=== PATIENT | female | born 1990 | race Caucasian/White ===

== ENCOUNTER 2016-09-14 01:32 | Inpatient (IN) ==
[2016-09-14] MEDS ORDERED: SODIUM CHLORIDE 1,000 ML IV STA (02:35)
[2016-09-14 02:47] LABS: ABG BASE EXCESS -4 (-2.0-2.0); ABG HCO3 21.3 (22.0-26.0); ABG PCO2 39.9 mmHg (35-45); ABG PH 7.336 (7.35-7.45); ABG TCO2 23 (22.0-28.0)
[2016-09-14 02:59] LABS: HEMATOCRIT 42.5 % (37.0-47.0); HEMOGLOBIN 14.6 g/dl (12.0-16.0); MEAN CORPUSCULAR HEMOGLOBIN 29.3 pg (27.0-31.0); MEAN CORPUSCULAR HGB CONC 34.4 (31.8-35.4); MEAN CORPUSCULAR VOLUME 85.2 fl (81.0-99.0); PLATELET COUNT 323 10^3/uL (140-440); RED BLOOD COUNT 4.99 10^6/ul (4.20-5.40)
[2016-09-14 03:07] LABS: BILIRUBIN,URINE Negative (NEGATIVE); KETONES,URINE Negative (NEGATIVE); LEUKOCYTE ESTERASE ,URINE Trace (NEGATIVE); NITRITE,URINE Positive (NEGATIVE); PH,URINE 5.5 (5-9); PROTEIN,URINE 1+ (NEGATIVE); URINE, BLOOD 2+ (NEGATIVE)
[2016-09-14 03:08] LABS: SERUM PREGNANCY INTERNAL QC INTERNAL QC VALID
[2016-09-14 03:11] LABS: ANISOCYTOSIS NOT PRESENT (NOT PRESENT); WHITE BLOOD COUNT 31.12 K/ul (4.6-10.2)
[2016-09-14 03:14] LABS: ADD URINE MICROSCOPIC YES
[2016-09-14 03:15] LABS: BACTERIA,URINE 4+ (NOT PRESENT)
[2016-09-14 03:18] LABS: ALANINE AMINOTRANSFERASE 23 U/L (12-78); ALBUMIN 4.3 g/dL (3.4-5.0); ALKALINE PHOSPHATASE 60 U/L (42-98); ANION GAP 15.5; ASPARTATE AMINO TRANSFERASE 68 U/L (15-37); BILIRUBIN,TOTAL 0.52 mg/dL (0.00-1.20); BLOOD UREA NITROGEN 19 mg/dL (7-18); BUN/CREATININE RATIO 20.87; CALCIUM 9.1 mg/dL (8.2-10.2); CARBON DIOXIDE 20 mmol/L (21-32); CHLORIDE 110 mmol/L (98-107); CREATININE 0.91 mg/dL (0.60-1.30); GLUCOSE 116 mg/dL (70-110); POTASSIUM 3.5 mmol/L (3.5-5.10); SODIUM 142 mmol/L (136-145); TOTAL PROTEIN 7.6 g/dL (6.4-8.2)
[2016-09-14] MEDS ORDERED: LEVAQUIN 500 MG in PREMIX 100 ML D5W 1 BAG IV STA (03:18)
[2016-09-14] MEDS ORDERED: LEVAQUIN 100 ML IV ONE (03:32)
[2016-09-14 03:33] LABS: COCAIN SCREEN,URINE NEGATIVE (NEGATIVE)
[2016-09-14 03:40] LABS: FLU INTERNAL QC INTERNAL QC VALID; RAPID FLU A NEGATIVE (NEGATIVE); RAPID FLU B NEGATIVE (NEGATIVE)
--- NOTE | 2016-09-14 03:42 | CT ---
EXAM: CT brain without contrast HISTORY: Mental status change TECHNIQUE: CT of the brain without intravenous contrast FINDINGS: There is no acute hemorrhage midline shift or mass effect. No hydrocephalus or abnormal extra-axial fluid collection. No significant parenchymal attenuation abnormality. The bony cranium appears normal. The visualized paranasal sinuses are clear. Soft tissues without significant abnorm ality. IMPRESSION: 1. CT of the brain within normal limits.
--- NOTE | 2016-09-14 03:44 | CT ---
Exam: CT of the chest without contrast History: Cough and fever Technique: [address] of the chest without contrast FINDINGS: The lung windows show no infiltrative opacities. No suspicious nodules or masses. Heart , great vessels and pericardium appear normal by noncontrast CT. Bilateral breast prosthesis. No a cute findings of the chest wall soft tissues or bony thorax. Impression: 1. No abnormalities of the chest
--- NOTE | 2016-09-14 03:48 | CT ---
Exam: CT of the abdomen and pelvis without contrast History: Abdominal pain and fever Technique: [address] of the abdomen and pelvis without intravascular contrast FINDINGS: No significant liver abnormality. The adrenals, pancreas and spleen are unremarkable. The stomach and hiatus are unremarkable.The gallbladder appears normal. Kidneys and proximal collecting system are unremarkable. The appendix is normal. Orthopedic hardware in the pelvis is technically i nhibiting at the level of the cecum. Bowel loops demonstrate normal caliber. No inflamatory change s een in the mesentery or retroperitoneum. Pelvic genitourinary structures appear normal. Pelvic bowel loops are unremarkable. No inflammatory change in the pelvic fat. No acute abnormality of the abdominal or pelvic skeleton. Extensive orthop edic hardware of the lumbosacral spine. Prior screw fixation of the sacroiliac joints. Impression: 1. No inflammatory process, bowel or urinary obstruction is seen. No acute findings of the abdomen or pelvis.
--- NOTE | 2016-09-14 05:27 | ED.PDOC ---
General ED Provider: Dr. DALI CHAN-ER Chief Complaint: Altered Mental Status Stated Complaint: she is running a fever Time Seen by Physician: 01:40 Mode of Arrival: Wheelchair Information Source: Family Exam Limitations: No limitations Primary Care Provider: KAREN COCHRAN Nursing and Triage Documentation Reviewed and Agree: Yes Neurological Complaint Exam - Altered Mental Status Complaint/Exam Current Mental Status: Unresponsiveness, Confusion Onset: Sudden Symptoms Are: Still present Timing: Constant Initial Severity: Mild Current Severity: Mild Eye Deviation Present: No Character: Reports: Confusion, Responsiveness, Lethargy Aggravating: Reports: Ingestion Alleviating: Reports: Spontaneous resolution Associated Signs and Symptoms: Reports: Fever Cardiac Risk Factors: Reports: None CVA Risk Factors: Reports: None Related Surgical History: Reports: None Carotid Bruit Present: No Nystagmus Present: No Gag Reflex Present: Yes Meningeal Signs Positive: No Focal Weakness: Present: None Focal Sensory Loss: Present: None Gait: Normal [id number]: Normal Findings Romberg Test Positive: No Babinski Sign: Negative Right, Negative Left Heel to Toe Normal: Yes Signs of Injury: Present: Normal findings Thrombolytics Considered: No Differential Diagnoses: Intoxication, Sepsis Review of Systems - Review Of Systems Constitutional: Reports: Chills, Fever Eyes: Reports: No symptoms Ears, Nose, Mouth, Throat: Reports: No symptoms Respiratory: Reports: No symptoms Cardiac: Reports: No symptoms GI: Reports: No symptoms : Reports: No symptoms Musculoskeletal: Reports: No symptoms Skin: Reports: No symptoms Neurological: Reports: No symptoms Endocrine: Reports: No symptoms Hematologic/Lymphatic: Reports: No symptoms All Other Systems: Reviewed and Negative Past Medical History - Past Medical History Endocrine: Reports: None Cardiovascular: Reports: None Respiratory: Reports: None Hematological: Reports: None Gastrointestinal: Reports: Other Genitourinary: Reports: UTI, Other (left pyelo) Neuro/Psych: Reports: Migraine Musculoskeletal: Reports: Back Pain Cancer: Reports: None Last Menstrual Period: UNKNOWN Other Pertinent Past Medical History: BACK SURGERY, PELVIS SURGERY - Surgical History General Surgical History: Reports: Orthopedic (BACK SURGERY, PELVIS SURGERY ) - Family History Family History: Reports: Unknown - Social History Smoking Status: Current every day smoker, Heavy tobacco smoker Hx Substance Use: Yes Alcohol Screening: Occasionally Lives: With family - Immunizations Tetanus Shot up to Date: (UNKNOWN) Physical Exam - Physical Exam Appearance: Well-appearing, No pain distress, Well-nourished Ill-appearing: Mild Eyes: DENISE, EOMI, Conjunctiva clear ENT: Ears normal, Nose normal, Oropharynx normal Neck: Supple Respiratory: Airway patent, Breath sounds clear, Breath sounds equal, Respirations nonlabored Cardiovascular: RRR GI/: Soft Musculoskeletal: Normal strength, ROM intact, No edema, No calf tenderness Skin: Warm, Dry, Normal color Neurological: Sensation intact, Alert, Disoriented Psychiatric: Affect appropriate Interpretation - Radiology Interpretation Radiology Interpretation By: Radiologist Radiology Results: Negative Exam Interpreted: CT Scan Re-Evaluation - Re-Evaluation Time of Re-Evaluation: 05:26 Status: Improved (no awake and oriented) Vital Signs Stable: Yes Pain Level: o Appearance: NAD Lungs: Clear Skin: Warm and Dry Neuro: Alert and Oriented X3 CV: RRR Physician Notification - Case Discussed Physician Notified: dr cochran Time of Notification: 05:27 Critical Care Note - Critical Care Note Total Time (mins): 0 Course - Course Hematology/Chemistry: 09/14/16 02:50 09/14/16 02:50 Orders, Labs, Meds: Lab Review 09/14/16 09/14/16 09/14/16 02:00 02:33 02:50 WBC 31.12 H RBC 4.99 Hgb 14.6 Hct 42.5 MCV 85.2 MCH 29.3 MCHC 34.4 RDW Coeff of Yash 13.1 Plt Count 323 Neutrophils % (Manual) 88.0 H Lymphocytes % (Manual) 11.0 Monocytes % (Manual) 1.0 Puncture Site Lb O2 Saturation 96.0 ABG pH 7.336 L ABG pCO2 39.9 ABG pO2 85.0 ABG HCO3 21.3 L ABG Total CO2 23 ABG Base Excess -4 L Kieran Test + FiO2 % 21.0 Sodium 142 Potassium 3.5 Chloride 110 H Carbon Dioxide 20 L Anion Gap 15.5 BUN 19 H Creatinine 0.91 Estimated GFR (MDRD) 74.00 BUN/Creatinine Ratio 20.87 Glucose 116 H Lactic Acid 6.4 Calcium 9.1 Total Bilirubin 0.52 AST 68 H ALT 23 Alkaline Phosphatase 60 Total Protein 7.6 Albumin 4.3 Globulin 3.3 Albumin/Globulin Ratio 1.30 Procalcitonin 0.82 Serum , Qual Negative Urine Color Yellow Urine Clarity Slightly Urine pH 5.5 Ur Specific [place] >=1.030 Urine Protein 1+ Urine Glucose (UA) Negative Urine Ketones Negative Urine Blood 2+ Urine Nitrite Positive Urine Bilirubin Negative Urine Urobilinogen 0.2 Ur Leukocyte Esterase Trace Urine Microscopic WBC 2-5 Ur Squamous Epith Cells 2-5 Urine Bacteria 4+ Urine Opiates Screen Negative Ur Oxycodone Screen Negative Urine Methadone Screen Negative Ur Propoxyphene Screen Negative Ur Barbiturates Screen Negative U Tricyclic Antidepress Negative Ur Phencyclidine Scrn Negative Ur Amphetamine Screen Positive U Methamphetamines Scrn Negative U Benzodiazepines Scrn Negative Urine Cocaine Screen Negative U Cannabinoids Screen Negative Plasma/Serum Alcohol < 10.0 Influenza A (Rapid) Influenza B (Rapid) 09/14/16 03:15 WBC RBC Hgb Hct MCV MCH MCHC RDW Coeff of Yash Plt Count Neutrophils % (Manual) Lymphocytes % (Manual) Monocytes % (Manual) Puncture Site O2 Saturation ABG pH ABG pCO2 ABG pO2 ABG HCO3 ABG Total CO2 ABG Base Excess Kieran Test FiO2 % Sodium Potassium Chloride Carbon Dioxide Anion Gap BUN Creatinine Estimated GFR (MDRD) BUN/Creatinine Ratio Glucose Lactic Acid Calcium Total Bilirubin AST ALT Alkaline Phosphatase Total Protein Albumin Globulin Albumin/Globulin Ratio Procalcitonin Serum , Qual Urine Color Urine Clarity Urine pH Ur Specific [place] Urine Protein Urine Glucose (UA) Urine Ketones Urine Blood Urine Nitrite Urine Bilirubin Urine Urobilinogen Ur Leukocyte Esterase Urine Microscopic WBC Ur Squamous Epith Cells Urine Bacteria Urine Opiates Screen Ur Oxycodone Screen Urine Methadone Screen Ur Propoxyphene Screen Ur Barbiturates Screen U Tricyclic Antidepress Ur Phencyclidine Scrn Ur Amphetamine Screen U Methamphetamines Scrn U Benzodiazepines Scrn Urine Cocaine Screen U Cannabinoids Screen Plasma/Serum Alcohol Influenza A (Rapid) Negative Influenza B (Rapid) Negative Orders Category Date Time Status ADMIT PATIENT INPATIENT .TO MEDSURG (MONITORED BED) ADMISSION 09/14/16 05: 28 Active ABG DRAW REQUEST Stat CARDIO 09/14/16 02:34 Completed EKG-(ED ONLY) Stat CARDIO 09/14/16 02:34 Completed ACTIVITY .BR with BRP CARE 09/14/16 05:28 Active INTAKE & OUTPUT Q8HR CARE 09/14/16 05:28 Active TELEMETRY MONITORING TELE CARE 09/14/16 05:29 Active VITAL SIGNS Q4HR CARE 09/14/16 05:28 Active REGULAR DIET DIETARY 09/14/16 Breakfast Ordered IV [ED IV/MEDIPORT/POWERPORT] .ONCE EMERGENCY 09/14/16 02:35 Active ABG Stat LAB 09/14/16 02:33 Completed BLOOD ALCOHOL Stat LAB 09/14/16 02:50 Completed BLOOD CULTURE Stat LAB 09/14/16 02:50 Received CBC W/ AUTO DIFF DAILY@0600 LAB 09/15/16 06:00 Ordered CBC W/ AUTO DIFF DAILY@0600 LAB 09/16/16 06:00 Ordered CBC W/ AUTO DIFF DAILY@0600 LAB 09/17/16 06:00 Ordered CBC W/ AUTO DIFF DAILY@0600 LAB 09/18/16 06:00 Ordered CBC W/ AUTO DIFF DAILY@0600 LAB 09/19/16 06:00 Ordered CBC W/ AUTO DIFF DAILY@0600 LAB 09/20/16 06:00 Ordered CBC W/ AUTO DIFF DAILY@0600 LAB 09/21/16 06:00 Ordered CBC W/ AUTO DIFF DAILY@0600 LAB 09/22/16 06:00 Ordered CBC W/ AUTO DIFF DAILY@0600 LAB 09/23/16 06:00 Ordered CBC W/ AUTO DIFF DAILY@0600 LAB 09/24/16 06:00 Ordered CBC W/ AUTO DIFF DAILY@0600 LAB 09/25/16 06:00 Ordered CBC W/ AUTO DIFF DAILY@0600 LAB 09/26/16 06:00 Ordered CBC W/ AUTO DIFF DAILY@0600 LAB 09/27/16 06:00 Ordered CBC W/ AUTO DIFF DAILY@0600 LAB 09/28/16 06:00 Ordered CBC W/ AUTO DIFF DAILY@0600 LAB 09/29/16 06:00 Ordered CBC W/ AUTO DIFF DAILY@0600 LAB 09/30/16 06:00 Ordered CBC W/ AUTO DIFF DAILY@0600 LAB 10/01/16 06:00 Ordered CBC W/ AUTO DIFF DAILY@0600 LAB 10/02/16 06:00 Ordered CBC W/ AUTO DIFF DAILY@0600 LAB 10/03/16 06:00 Ordered CBC W/ AUTO DIFF Stat LAB 09/14/16 02:50 Completed COMPREHENSIVE METABOLIC PANEL DAILY@0600 LAB 09/15/16 06:00 Ordered COMPREHENSIVE METABOLIC PANEL DAILY@0600 LAB 09/16/16 06:00 Ordered COMPREHENSIVE METABOLIC PANEL DAILY@0600 LAB 09/17/16 06:00 Ordered COMPREHENSIVE METABOLIC PANEL DAILY@0600 LAB 09/18/16 06:00 Ordered COMPREHENSIVE METABOLIC PANEL DAILY@0600 LAB 09/19/16 06:00 Ordered COMPREHENSIVE METABOLIC PANEL DAILY@0600 LAB 09/20/16 06:00 Ordered COMPREHENSIVE METABOLIC PANEL DAILY@0600 LAB 09/21/16 06:00 Ordered COMPREHENSIVE METABOLIC PANEL DAILY@0600 LAB 09/22/16 06:00 Ordered COMPREHENSIVE METABOLIC PANEL DAILY@0600 LAB 09/23/16 06:00 Ordered COMPREHENSIVE METABOLIC PANEL DAILY@0600 LAB 09/24/16 06:00 Ordered COMPREHENSIVE METABOLIC PANEL DAILY@0600 LAB 09/25/16 06:00 Ordered COMPREHENSIVE METABOLIC PANEL DAILY@0600 LAB 09/26/16 06:00 Ordered COMPREHENSIVE METABOLIC PANEL DAILY@0600 LAB 09/27/16 06:00 Ordered COMPREHENSIVE METABOLIC PANEL DAILY@0600 LAB 09/28/16 06:00 Ordered COMPREHENSIVE METABOLIC PANEL DAILY@0600 LAB 09/29/16 06:00 Ordered COMPREHENSIVE METABOLIC PANEL DAILY@0600 LAB 09/30/16 06:00 Ordered COMPREHENSIVE METABOLIC PANEL DAILY@0600 LAB 10/01/16 06:00 Ordered COMPREHENSIVE METABOLIC PANEL DAILY@0600 LAB 10/02/16 06:00 Ordered COMPREHENSIVE METABOLIC PANEL DAILY@0600 LAB 10/03/16 06:00 Ordered COMPREHENSIVE METABOLIC PANEL Stat LAB 09/14/16 02:50 Completed LACTIC ACID Stat LAB 09/14/16 02:50 Completed MANUAL DIFFERENTIAL Stat LAB 09/14/16 02:50 Completed MOLECULAR GROUP A STREP Stat LAB 09/14/16 03:15 Results PROCALCITONIN Stat LAB 09/14/16 02:50 Completed RAPID FLU A/B Stat LAB 09/14/16 03:15 Completed SERUM Stat LAB 09/14/16 02:50 Completed STREP SCREEN Stat LAB 09/14/16 03:15 Results URINALYSIS C & S IF INDICATED Stat LAB 09/14/16 02:00 Completed URINE CULTURE Stat LAB 09/14/16 03:15 Received URINE DRUG SCREEN (RAPID FOR ED) [DRUG SCREEN, URINE, LAB 09/14/16 02:00 Completed RAPID] Stat 0.9 % Sodium Chloride [Saline Flush] MEDS 09/14/16 02:35 Ordered 1 syr IVF PRN PRN Enoxaparin Sodium [Lovenox] MEDS 09/14/16 09:00 Ordered 40 mg SUBCUT DAILY Levofloxacin/D5w [Levaquin] 100 ml MEDS 09/14/16 03:32 Discontinued IV .STK-MED Levofloxacin/D5w [Levaquin] 500 mg MEDS 09/14/16 09:00 Ordered Premix 100 ml D5w 1 bag IV DAILY Levofloxacin/D5w [Levaquin] 500 mg MEDS 09/14/16 03:18 Discontinued Premix 100 ml D5w 1 bag IV ONCE Potassium Chloride in 0.9%NaCl [Sodium Chloride 0.9%- MEDS 09/14/16 05:30 Ordered KCl 20 Meq] 1,000 ml IV 75 mls/hr Sodium Chloride 0.9% [Sodium Chloride] 1,000 ml MEDS 09/14/16 02:35 Active IV 100 mls/hr RESUSCITATION STATUS Routine OTHERS 09/14/16 05:[address] ABDOMEN/PELVIS WO CONTRAST Stat RADS 09/14/16 02:[address] CHEST W/O CONTRAST Stat RADS 09/14/16 02:[address] HEAD W/O CONTRAST Stat RADS 09/14/16 02:36 Completed Medications Generic Name Dose Route Start Last Admin Trade Name Freq PRN Reason Stop Dose Admin Enoxaparin Sodium 40 mg 09/14/16 09:00 Lovenox SUBCUT DAILY LAYA Sodium Chloride 1,000 mls @ 100 mls/hr 09/14/16 02:35 09/14/16 03:04 Sodium Chloride IV 09/14/16 12:34 100 mls/hr .Q10H STA Administration Levofloxacin/Dextrose 500 mg/ 100 mls @ 100 mls/hr 09/14/16 09:00 Dextrose IV DAILY LAYA Potassium Chloride/Sodium Chloride 1,000 mls @ 75 mls/hr 09/14/16 05:30 Sodium Chloride 0.9%-Kcl 20 Meq IV .[id number] LAYA Sodium Chloride 1 syr 09/14/16 02:35 09/14/16 03:04 Saline Flush IVF 1 syr PRN PRN Administration To flush IV Discontinued Medications Generic Name Dose Route Start Last Admin Trade Name Freq PRN Reason Stop Dose Admin Levofloxacin/Dextrose 500 mg/ 100 mls @ 100 mls/hr 09/14/16 03:18 09/14/16 03 :38 Dextrose IV 09/14/16 04:17 100 mls/hr ONCE STA Administration Vital Signs: Temp Pulse Resp BP Pulse Ox 09/14/16 03:39 97.5 F L 98 H 20 121/75 98 09/14/16 01:34 101.2 F H 136 H 28 H 114/70 96 Departure - Departure Time of Disposition: : Disposition: ADMITTED INPATIENT Discharge Problem: UTI (lower urinary tract infection) Condition: Fair Pt referred to PMD for follow-up: Yes Allergies/Adverse Reactions: Allergies amoxicillin [Amoxicillin] Adverse Reaction (Intermediate, Verified 03/24/16 14: 18) Rash latex Adverse Reaction (Mild, Verified 03/24/16 14:18) Rash on skin if contact with skin for more than 30minutes. Home Medications: Ambulatory Orders 1 [Unobtainable] 09/14/16 Disposition Discussed With: Patient
[2016-09-14 06:38] VITALS: BMI 19.6
[2016-09-14] MEDS: LOVENOX SUBCUT SCH (09:17)
[2016-09-14] MEDS: SODIUM CHLORIDE 0.9%-KCL 20 MEQ 1,000 ML IV SCH (10:37)
[2016-09-14] MEDS: NORCO 5-325 PO PRN (17:49)
[2016-09-14] MEDS: LEVAQUIN 500 MG in PREMIX 100 ML D5W 1 BAG IV SCH (20:43)
[2016-09-15 04:48] LABS: BASOPHILS % (AUTO) 0.4 % (0.0-3.0); EOSINOPHILS # (AUTO) 0.2 K/ul (0.0-0.7); EOSINOPHILS % (AUTO) 1.9 % (0.0-7.0); HEMATOCRIT 36.3 % (37.0-47.0); HEMOGLOBIN 12.4 g/dl (12.0-16.0); IMMATURE GRANULOCYTE % (AUTO) 0.2 % (0.0-5.0); LYMPHOCYTES # (AUTO) 3.7 K/uL (0.60-3.4); LYMPHOCYTES % (AUTO) 39.4 (10.0-50.0); MEAN CORPUSCULAR HEMOGLOBIN 29.3 pg (27.0-31.0); MEAN CORPUSCULAR HGB CONC 34.2 (31.8-35.4); MEAN CORPUSCULAR VOLUME 85.8 fl (81.0-99.0); MONOCYTES # (AUTO) 0.5 K/uL (0.4-2.0); MONOCYTES % (AUTO) 5.6 (0-10); NEUTROPHILS # (AUTO) 4.9 K/ul (2.0-6.9); NEUTROPHILS % (AUTO) 52.5; PLATELET COUNT 255 10^3/uL (140-440); RED BLOOD COUNT 4.23 10^6/ul (4.20-5.40); WHITE BLOOD COUNT 9.26 K/ul (4.6-10.2)
[2016-09-15 05:08] LABS: ALBUMIN 3.2 g/dL (3.4-5.0); ALBUMIN/GLOBULIN RATIO 1.33; ANION GAP 11.6; BILIRUBIN,TOTAL 0.54 mg/dL (0.00-1.20); BUN/CREATININE RATIO 24.13; CALCIUM 8.8 mg/dL (8.2-10.2); CREATININE 0.58 mg/dL (0.60-1.30); POTASSIUM 3.6 mmol/L (3.5-5.10); TOTAL PROTEIN 5.6 g/dL (6.4-8.2)
[2016-09-15] MEDS: SODIUM CHLORIDE 0.9%-KCL 20 MEQ 1,000 ML IV SCH ×3 (06:06→19:48)
[2016-09-15] MEDS: LOVENOX SUBCUT SCH (08:32)
[2016-09-15] MEDS: NORCO 5-325 PO PRN (17:29)
[2016-09-15] MEDS: LEVAQUIN 500 MG in PREMIX 100 ML D5W 1 BAG IV SCH (20:07)
[2016-09-16 05:20] LABS: BASOPHILS % (AUTO) 0.3 % (0.0-3.0); EOSINOPHILS # (AUTO) 0.3 K/ul (0.0-0.7); EOSINOPHILS % (AUTO) 3.9 % (0.0-7.0); HEMATOCRIT 37.4 % (37.0-47.0); HEMOGLOBIN 12.6 g/dl (12.0-16.0); IMMATURE GRANULOCYTE % (AUTO) 0.2 % (0.0-5.0); LYMPHOCYTES # (AUTO) 4.1 K/uL (0.60-3.4); LYMPHOCYTES % (AUTO) 47.6 (10.0-50.0); MEAN CORPUSCULAR HEMOGLOBIN 29.3 pg (27.0-31.0); MEAN CORPUSCULAR HGB CONC 33.7 (31.8-35.4); MONOCYTES # (AUTO) 0.5 K/uL (0.4-2.0); MONOCYTES % (AUTO) 5.5 (0-10); NEUTROPHILS # (AUTO) 3.7 K/ul (2.0-6.9); NEUTROPHILS % (AUTO) 42.5; PLATELET COUNT 245 10^3/uL (140-440); WHITE BLOOD COUNT 8.66 K/ul (4.6-10.2)
[2016-09-16 05:45] LABS: ALBUMIN 2.9 g/dL (3.4-5.0); ALBUMIN/GLOBULIN RATIO 1.16; BILIRUBIN,DIRECT 0.25 mg/dL (0.00-0.30); BILIRUBIN,TOTAL 0.52 mg/dL (0.00-1.20); BUN/CREATININE RATIO 14.03; CALCIUM 8.4 mg/dL (8.2-10.2); CREATININE 0.57 mg/dL (0.60-1.30); TOTAL PROTEIN 5.4 g/dL (6.4-8.2)
[2016-09-16] MEDS: LOVENOX SUBCUT SCH (08:06)
--- NOTE | 2016-09-16 08:49 | US ---
EXAM: ULTRASOUND ABDOMEN LIMITED HISTORY: Elevated liver enzymes FINDINGS: Ultrasound abdomen, limited. Liver size was measured at about 9 cm, within normal limits . The liver parenchyma demonstrated normal sonographic appearance without evidence of intrahepatic b iliary dilatation or focal lesion. Patent and hepatopedal portal vein. The gallbladder is decompressed and the wall appears thickened although measures grossly within norm al limits at about 0.23-0.33 cm. There is no pericholecystic ascites or gallstones. No gallbladder sludge. Common bile duct diameter normal 0.21 cm. Visualized pancreas within normal limits. IMPRESSION: 1. Liver appears grossly unremarkable sonographically. No focal hepatic lesion or intrahepatic lauren iary dilatation. 2. Contracted gallbladder with no stones or sludge identified. Common bile duct diameter within no rmal limits. 3. No ascites.
[2016-09-16] MEDS: SODIUM CHLORIDE 0.9%-KCL 20 MEQ 1,000 ML IV SCH (15:17)
[2016-09-16 15:23] VITALS: BP 111/74; TEMP 97.7
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
== END 2016-09-16 16:56 | disposition home or self-care (01) | DRG 690 ==
LOC: ED 01:32 → MEDSURG B 05:36
PROVIDERS: ADMIT Family Medicine; ATTEND Family Medicine
DX: N39.0 Urinary tract infection, site not specified (principal); R41.82 Altered mental status, unspecified; R50.9 Fever, unspecified; F15.99 Other stimulant use, unspecified with unspecified stimulant-induced disorder; N31.9 Neuromuscular dysfunction of bladder, unspecified; R53.83 Other fatigue; R74.8 Abnormal levels of other serum enzymes; R45.1 Restlessness and agitation; B96.20 Unspecified Escherichia coli [E. coli] as the cause of diseases classified elsewhere; G89.29 Other chronic pain; R10.2 Pelvic and perineal pain; F17.200 Nicotine dependence, unspecified, uncomplicated; Z96.0 Presence of urogenital implants; Z91.19 Patient's noncompliance with other medical treatment and regimen; V89.2XXS Person injured in unspecified motor-vehicle accident, traffic, sequela
CPT/HCPCS: 36415; 80053; 80306; 80307; 81001; 82248; 82803; 83605; 84145; 84703; 85007; 85025; 86706; 86803; 87040; 87086; 87186; 87651; 87804; 87880; 93005; 93010; 96361; 96365; 99284

== ENCOUNTER 2017-10-19 21:51 | Outpatient (CLI) | END 2017-10-19 22:07 | disposition short-term general hospital (02) | LOC: AMBL 21:51 | PROVIDERS: ATTEND Family Medicine | DX: R41.82 Altered mental status, unspecified (principal); F15.10 Other stimulant abuse, uncomplicated; R44.3 Hallucinations, unspecified ==

== ENCOUNTER 2024-05-06 16:30 | Inpatient (IN) ==
[2024-05-06] MEDS ORDERED: BENADRYL 25 MG in SODIUM CHLORIDE 100ML 100 ML IV STA (17:32)
[2024-05-06] MEDS ORDERED: COMPAZINE 10 MG in SODIUM CHLORIDE 50 ML IV STA (17:32)
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
[2024-05-06 18:10] LABS: BASOPHILS % (AUTO) 0.2 % (0.0-3.0); EOSINOPHILS # (AUTO) 0.1 K/ul (0.0-0.7); EOSINOPHILS % (AUTO) 0.6 % (0.0-7.0); HEMATOCRIT 39.4 % (37.0-47.0); HEMOGLOBIN 12.7 g/dl (12.0-16.0); IMMATURE GRANULOCYTE # (AUTO) 0.1 (0.0-1.0); IMMATURE GRANULOCYTE % (AUTO) 0.4 % (0.0-5.0); LYMPHOCYTES # (AUTO) 1.3 K/uL (0.60-3.4); LYMPHOCYTES % (AUTO) 6.8 (10.0-50.0); MEAN CORPUSCULAR HEMOGLOBIN 28.8 pg (27.0-31.0); MEAN CORPUSCULAR HGB CONC 32.2 (31.8-35.4); MEAN CORPUSCULAR VOLUME 89.3 fl (81.0-99.0); MONOCYTES # (AUTO) 0.6 K/uL (0.4-2.0); MONOCYTES % (AUTO) 3.1 (0-10); NEUTROPHILS # (AUTO) 16.2 K/ul (2.0-6.9); NEUTROPHILS % (AUTO) 88.9 % (42.2-75.2); PLATELET COUNT 274 10^3/uL (140-440); RDW COEFFICIENT OF VARIATION 13.7 % (11.6-14.8); RED BLOOD COUNT 4.41 10^6/ul (4.20-5.40); WHITE BLOOD COUNT 18.27 K/ul (4.6-10.2)
[2024-05-06 18:23] LABS: ALANINE AMINOTRANSFERASE 22.5 U/L (0-35); ALBUMIN 3.92 g/dL (3.5-5.0); ALKALINE PHOSPHATASE 77.1 U/L (38-126); ASPARTATE AMINO TRANSFERASE 52.6 U/L (14-36); BILIRUBIN,TOTAL 0.39 mg/dL (0.2-1.3); BLOOD UREA NITROGEN 8.4 mg/dL (7-17); CALCIUM 8.9 mg/dL (8.4-10.2); CARBON DIOXIDE 24.8 mmol/L (22-30.0); CHLORIDE 105.4 mmol/L (98-107); CREATININE 0.47 mg/dL (0.60-1.30); GLUCOSE 108.3 mg/dL (74-106); POTASSIUM 4.05 mmol/L (3.5-5.1); SODIUM 135.9 mmol/L (134.5-145); TOTAL PROTEIN 7.28 g/dL (6.3-8.2)
[2024-05-06 18:26] LABS: SERUM PREGNANCY NEGATIVE (NEGATIVE)
[2024-05-06 18:40] LABS: SARS COV-2 RNA RAPID NAAT NEGATIVE (NEGATIVE)
[2024-05-06] MEDS: SODIUM CHLORIDE 1,000 ML IV ONE (19:13)
[2024-05-06] MEDS: TORADOL IVP STA (19:13)
[2024-05-06] MEDS: BENADRYL IVP STA (19:14)
[2024-05-06] MEDS: COMPAZINE IVP STA (19:17)
--- NOTE | 2024-05-06 19:38 | CT ---
EXAM: CT HEAD WITHOUT CONTRAST TECHNIQUE: Noncontrast CT of the head with multiple reformats. HISTORY: Headache. Vomiting. Trauma. COMPARISON: 09/14/2016 FINDINGS: Ventricular size is normal. Bansal-white matter interfaces are preserved with no evidence of acute inf arct. No evidence of intracranial hemorrhage. No midline shift or mass effect. No ectopia. Parana james sinuses and mastoid air cells are clear. Orbital contents are normal. The calvarium is intact. IMPRESSION: 1. No acute findings. MRI may be of benefit if concern for concussion. All CT scans are performed using dose optimization techniques as appropriate to the performed exam an d includes at least one of the following: Automated exposure control, adjustment of the mA and/or kV according to size, and the use of iterative reconstruction technique. All CT scans are performed using dose optimization techniques as appropriate to the performed exam an d include at least one of the following: Automated exposure control, adjustment of the mA and/or kV according t o size, and the use of iterative reconstruction technique.
--- NOTE | 2024-05-06 19:39 | DI ---
EXAM: RIBS RIGHT SIDE WITH PA CHEST. THREE VIEWS TOTAL HISTORY: Injury with rib pain. COMPARISON: None. FINDINGS/IMPRESSION: Diffuse infiltrates bilaterally more pronounced in the lower lobes. May reflect pulmonary edema or p neumonia.
[2024-05-06 20:10] LABS: MOLECULAR FLU A NEGATIVE BY NAAT (NEGATIVE); MOLECULAR FLU B NEGATIVE BY NAAT (NEGATIVE); RSV MOLECULAR NEGATIVE BY NAAT (NEGATIVE)
[2024-05-06] MEDS: ROCEPHIN 1 GM VIAL IVP ONE (20:40)
[2024-05-06] MEDS: ZITHROMAX 500 MG in SODIUM CHLORIDE 250 ML IV ONE (20:45)
[2024-05-06] MEDS ORDERED: ZOFRAN SDV IVP PRN (21:02)
[2024-05-06] MEDS ORDERED: TYLENOL PO PRN (21:02)
[2024-05-06 21:04] LABS: ABG O2 HGB 88.8 % (95-100); ABG PH 7.43 (7.35-7.45); BEecf -0.4 (-2.0-3.0); COHb 5.9 (0.5-1.5); HCO3 23.9 (21-28); MetHb 0.9 (0-1.5); sO2 93.3 % (94-98); tHb 12.4 g/dl (11.7-17.4)
[2024-05-06 22:06] VITALS: BMI 31.8
[2024-05-06] MEDS: LASIX IVP ONE (22:25)
[2024-05-06] MEDS: SOLU-MEDROL 40 MG IVP SCH (22:25)
[2024-05-06] MEDS: DUONEB NEB SCH (22:29)
[2024-05-06] MEDS ORDERED: BUSPAR PO PRN (23:31)
[2024-05-07 01:06] LABS: BILIRUBIN,URINE Negative (NEGATIVE); CLARITY,URINE Clear (CLEAR); COLOR,URINE Yellow (YELLOW); GLUCOSE, URINE (UA) Negative (NEGATIVE); KETONES,URINE Negative (NEGATIVE); LEUKOCYTE ESTERASE ,URINE Negative (NEGATIVE); NITRITE,URINE Negative (NEGATIVE); PH,URINE 5.5 (5-9); PROTEIN,URINE Negative (NEGATIVE); URINE, BLOOD Negative (NEGATIVE); UROBILINOGEN,URINE 0.2 (0.2)
[2024-05-07 01:14] LABS: AMPHETAMINE SCREEN,URINE NEGATIVE (NEGATIVE); BARBITURATE SCREEN,URINE NEGATIVE (NEGATIVE); BENZODIAZEPINES SCREEN,URINE NEGATIVE (NEGATIVE); CANNABINOID SCREEN,URINE POSITIVE (NEGATIVE); COCAIN SCREEN,URINE NEGATIVE (NEGATIVE); METHADONE URINE SCREEN NEGATIVE (NEGATIVE); METHAMPHETAMINES SCREEN,URINE NEGATIVE (NEGATIVE); OPIATE SCREEN,URINE NEGATIVE (NEGATIVE); OXYCODONE URINE SCREEN NEGATIVE (NEGATIVE); PHENCYCLIDINE SCREEN,URINE NEGATIVE (NEGATIVE); TRICYCLIC ANTIDEPRESSANTS URIN NEGATIVE (NEGATIVE)
[2024-05-07 05:52] LABS: BASOPHILS % (AUTO) 0.1 % (0.0-3.0); EOSINOPHILS % (AUTO) 0.2 % (0.0-7.0); HEMATOCRIT 37.5 % (37.0-47.0); HEMOGLOBIN 12.3 g/dl (12.0-16.0); IMMATURE GRANULOCYTE # (AUTO) 0.1 (0.0-1.0); IMMATURE GRANULOCYTE % (AUTO) 0.5 % (0.0-5.0); LYMPHOCYTES # (AUTO) 0.8 K/uL (0.60-3.4); LYMPHOCYTES % (AUTO) 6.5 (10.0-50.0); MEAN CORPUSCULAR HEMOGLOBIN 28.7 pg (27.0-31.0); MEAN CORPUSCULAR HGB CONC 32.8 (31.8-35.4); MEAN CORPUSCULAR VOLUME 87.6 fl (81.0-99.0); MONOCYTES # (AUTO) 0.1 K/uL (0.4-2.0); MONOCYTES % (AUTO) 0.8 (0-10); NEUTROPHILS # (AUTO) 11.4 K/ul (2.0-6.9); NEUTROPHILS % (AUTO) 91.9 % (42.2-75.2); PLATELET COUNT 290 10^3/uL (140-440); RDW COEFFICIENT OF VARIATION 13.6 % (11.6-14.8); RED BLOOD COUNT 4.28 10^6/ul (4.20-5.40); WHITE BLOOD COUNT 12.39 K/ul (4.6-10.2)
[2024-05-07 06:00] LABS: ALANINE AMINOTRANSFERASE 19.9 U/L (0-35); ALBUMIN 3.6 g/dL (3.5-5.0); ALKALINE PHOSPHATASE 67.9 U/L (38-126); ASPARTATE AMINO TRANSFERASE 40.4 U/L (14-36); BILIRUBIN,TOTAL 0.19 mg/dL (0.2-1.3); BLOOD UREA NITROGEN 10.4 mg/dL (7-17); CALCIUM 8.41 mg/dL (8.4-10.2); CARBON DIOXIDE 25.8 mmol/L (22-30.0); CHLORIDE 103.5 mmol/L (98-107); CREATININE 0.48 mg/dL (0.60-1.30); GLUCOSE 139.1 mg/dL (74-106); POTASSIUM 3.88 mmol/L (3.5-5.1); SODIUM 136.5 mmol/L (134.5-145); TOTAL PROTEIN 6.89 g/dL (6.3-8.2)
[2024-05-07] MEDS: ABILIFY PO SCH (09:08)
[2024-05-07] MEDS: ZITHROMAX PO SCH (09:10)
[2024-05-07] MEDS: NORVASC PO SCH (09:10)
[2024-05-07] MEDS: PROZAC PO SCH (09:14)
[2024-05-07] MEDS: NEURONTIN PO SCH (09:14)
[2024-05-07] MEDS: FLONASE NAS SCH (09:16)
[2024-05-07 10:14] VITALS: BP 114/63; PULSE 80; RESP 16; TEMP 98.6
[2024-05-07] MEDS: NON-FORMULARY MEDICATION (Buprenorphine-Naloxone [Suboxone] 8-2 mg film) BUCCAL SCH (10:14)
--- NOTE | 2024-05-07 11:22 | PCM.SS ---
Provider Provider[facility] EWELINA MATIAS[facility] Date Admission Date: 05/06/24 Discharge Date Discharge Date: 05/07/24 Primary Care Physician Primary Care Physician: PAM GILBERT MD Chief Complaint Reason For Visit: COMMUNITY AQUIRED PNUMONIA History of Present Illness History of Present Illness: Admitted 05/06/24 20:58, this 34 year old /WHITE/F with pmh of HTN, polysubstance abuse, and schizophrenia presented to the ER with complaints of headache, intermittent blurry vision, N/V, edema to face, hands, and feet, congestion, and cough. States that this started a couple days ago and worsened yesterday. Fell off a 4 zhou over a week ago and hit her head. Complained of pain when taking a deep breath to right anterior lower ribs. Reports cough initially being dry and then had 1 episode with green sputum. ER work-up revealed questionable pulmonary edema vs pneumonia, elevated BNP, mild elevation of WBC at 14, procal of 0.2, and requirement of 4L oxygen via NC due to low O2 sat at 87%. She was given rocephin, azith, and nebs. Overnight hospitalist ordered 1 dose of IV lasix 40 mg. This am patient reports feeling like a new person. States her face, hands, and feet no longer feel swollen like they did yesterday and breathing is much better. Upon discussion, patient reports she takes amlodipine 3 times a day for her BP. Later tells this provider she cuts the 10 mg in half and takes half in the morning, half at lunch, and then might take it again in the evening. But she can tolerate the 10 mg sometimes but it does bottom out her BP to 90s/50s. [facility] Medical History Schizophrenia F20.9 - Schizophrenia, unspecified (ICD-10) Paranoid schizophrenia F20.0 - Paranoid schizophrenia (ICD-10) Constipation K59.00 - Constipation, unspecified (ICD-10) Surgical History pin in right hip broken tail bone back surgery Family History Mother No problems noted. FATHER No problems noted. Grandfather/Grandmother No problems noted. Social History Smoking and tobacco status: Current every day smoker Quit status: not considering quitting Alcohol intake: current Alcohol intake frequency: holidays/special occasions only Alcohol type: beer Substance use type: does not use Amrita/evangelical: NONE Special amrita needs: No Agree to transfusion: Yes Adopted: No Caregiver/support person: No Foster care: No Household members: family and children Housing: house Number of children: 2 Highest education level completed: some college, no degree Financial difficulty paying for basics: hard service: No Current occupational status: unemployed Pets and animals: Yes History of recent travel: No Sexually active: Yes Do you think of yourself as: straight/heterosexual Current gender identity: female Seatbelt use: always Helmet use: No Drives intoxicated or rides with 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 Current diet type/program: regular Well-balanced diet: daily Caffeine: Yes Eating out: rarely or never Reads food labels: seldom or never During the past year weight has: increased > 10 lbs Water heater temperature set < 120 degrees: Yes Working smoke detector in home: Yes Fire extinguisher in home: No Firearms in home: No What type of physical activity do you participate in?: none Physical activity functional status: independent ambulation How many days of moderate to strenuous exercise, like a brisk walk, did you do in the last 7 days: 0 Medications Mecications: Medications at Discharge (Home Meds & RX) ibuprofen 200 mg capsule 200 mg PO PRN PRN PAIN 09/14/16 buprenorphine 8 mg-naloxone 2 mg sublingual film (Suboxone) 1 film buccal TID 11/08/23 fluoxetine 40 mg capsule See Rx Instructions .Route .COMPLEX #90 caps 11/08/23 fluticasone propionate 50 mcg/actuation nasal spray,suspension 1 spray intranasal BID #15.8 grams 11/08/23 albuterol sulfate 90 mcg/actuation aerosol inhaler See Rx Instructions .Route .COMPLEX #6.7 grams 02/07/24 amlodipine 10 mg tablet 10 mg PO QDAY #30 tabs 02/07/24 aripiprazole 10 mg tablet 10 mg PO DAILY #90 tabs 02/07/24 buspirone 10 mg tablet See Rx Instructions .Route .COMPLEX #270 tabs 02/07/24 gabapentin 600 mg tablet See Rx Instructions .Route .COMPLEX #270 tabs 02/07/24 Allergies Allergies Allergy/AdvReac Type Severity Reaction Status Date / Time amoxicillin (Amoxicillin) AdvReac Intermediate Rash Verified 05/06/24 17:11 latex AdvReac Mild Unknown Verified 05/06/24 17:11 Review of Systems Constitutional: Reports No symptoms Head: Reports Normocephalic Eyes: Reports Blurred vision (now resolved) Ears: Reports No symptoms Nose: Reports Congestion Mouth: Reports No symptoms Throat: Reports No symptoms Cardiovascular: Reports Edema (face, hands, feet) Respiratory: Reports Cough and Shortness of air Gastrointestinal: Reports Nausea and Vomiting Genitourinary: Reports No Symptoms Musculoskeletal: Reports No symptoms Endocrine: Reports No symptoms Hematology: Reports No symptoms Immunology: Reports No symptoms Neurological: Reports Headache Psychiatric: Reports No symptoms Physical Examination Appearance: Positive No Apparent Distress and Alert and Oriented x3 Head: Positive Normocephalic Eyes: Positive DENISE ENT: Positive Not Examined Neck: Positive Supple, Non-Tender and Trachea Midline Heart: Positive RRR and No Murmurs Respiratory: Positive Breath Sounds Clear, Bilaterally, Breath Sounds Equal and Respirations Nonlabored GI/: Positive Soft, Nontender, Bowel sounds normal and No Distention Extremities: Positive Edema (trace BLE) and Pedal Pulses Palpable Bilaterally Neurological: Positive Sensation Intact, Motor Intact, Alert and Oriented Vital Signs (Last 4 Hours) Vital Signs Last 4 Hours: Vital Signs: Last 4 Hours 05/07/24 08:00 05/07/24 10:00 05/07/24 10:00 Temperature 98.6 F Temperature Source Temporal Artery Scan Pulse Rate 80 Respiratory Rate 16 Blood Pressure 114/63 Blood Pressure Mean 80 Blood Pressure Location Right Arm Blood Pressure Position Supine O2 Sat by Pulse Oximetry 91 L Oxygen Delivery Method Nasal Cannula Nasal Cannula Nasal Cannula Oxygen Flow Rate 4 2 2 Pulse Oximetry Type Pulse Oximetry Monitoring 05/07/24 11:11 Temperature Temperature Source Pulse Rate Respiratory Rate Blood Pressure Blood Pressure Mean Blood Pressure Location Blood Pressure Position O2 Sat by Pulse Oximetry Oxygen Delivery Method Room Air Oxygen Flow Rate 95 Pulse Oximetry Type Remote Telemetry Pulse Oximetry Monitoring Continues Labs This Visit Labs This Visit: Labs This Visit 05/06/24 05/06/24 05/06/24 18:02 18:05 19:20 WBC 18.27 H RBC 4.41 Hgb 12.7 Hct 39.4 MCV 89.3 MCH 28.8 MCHC 32.2 RDW Coeff of Yash 13.7 Plt Count 274 Immature Gran % (Auto) 0.4 Neut % (Auto) 88.9 H Lymph % (Auto) 6.8 L [place] % (Auto) 3.1 Eos % (Auto) 0.6 Baso % (Auto) 0.2 Neut # (Auto) 16.2 H Lymph # (Auto) 1.3 Cache # (Auto) 0.6 Eos # (Auto) 0.1 Baso # (Auto) 0.0 Immature Gran # (Auto) 0.1 Puncture Site Base Excess O2 Saturation ABG pH ABG pCO2 ABG pO2 ABG HCO3 ABG Total CO2 Kieran Test Hemoglobin Oxyhemoglobin Carboxyhemoglobin Total Hemoglobin O2 Delivery Device Oxygen Liter Flow Sodium 135.9 Potassium 4.05 Chloride 105.4 Carbon Dioxide 24.8 Anion Gap 9.75 BUN 8.4 Creatinine 0.47 L Estimated GFR (MDRD) 151.00 BUN/Creatinine Ratio 17.87 Glucose 108.3 H Lactic Acid Calcium 8.90 Total Bilirubin 0.39 AST 52.6 H ALT 22.5 Alkaline Phosphatase 77.1 NT-Pro-B Natriuret Pep 1440 H Total Protein 7.28 Albumin 3.92 Globulin 3.36 Albumin/Globulin Ratio 1.16 Procalcitonin 0.24 H Serum , Qual Negative Urine Color Urine Clarity Urine pH Ur Specific [place] Urine Protein Urine Glucose (UA) Urine Ketones Urine Blood Urine Nitrite Urine Bilirubin Urine Urobilinogen Ur Leukocyte Esterase Urine Opiates Screen Ur Oxycodone Screen Urine Methadone Screen Ur Barbiturates Screen U Tricyclic Antidepress Ur Phencyclidine Scrn Ur Amphetamine Screen U Methamphetamines Scrn U Benzodiazepines Scrn Urine Cocaine Screen U Cannabinoids Screen Influ A Molecular Assay Negative by naat Influ B Molecular Assay Negative by naat RSV Antigen Negative by naat SARS CoV-2 RNA Rapid KELY Negative 05/06/24 05/06/24 05/07/24 19:34 20:56 00:50 WBC RBC Hgb Hct MCV MCH MCHC RDW Coeff of Yash Plt Count Immature Gran % (Auto) Neut % (Auto) Lymph % (Auto) [place] % (Auto) Eos % (Auto) Baso % (Auto) Neut # (Auto) Lymph # (Auto) Cache # (Auto) Eos # (Auto) Baso # (Auto) Immature Gran # (Auto) Puncture Site Rr Base Excess -0.4 O2 Saturation 93.3 L ABG pH 7.43 ABG pCO2 36.0 ABG pO2 66.0 L ABG HCO3 23.9 ABG Total CO2 25.0 H Kieran Test Pos Hemoglobin 0.9 Oxyhemoglobin 88.8 L Carboxyhemoglobin 5.9 H Total Hemoglobin 12.4 O2 Delivery Device Cannula Oxygen Liter Flow 4.00 Sodium Potassium Chloride Carbon Dioxide Anion Gap BUN Creatinine Estimated GFR (MDRD) BUN/Creatinine Ratio Glucose Lactic Acid 0.95 Calcium Total Bilirubin AST ALT Alkaline Phosphatase NT-Pro-B Natriuret Pep Total Protein Albumin Globulin Albumin/Globulin Ratio Procalcitonin Serum , Qual Urine Color Yellow Urine Clarity Clear Urine pH 5.5 Ur Specific [place] 1.020 Urine Protein Negative Urine Glucose (UA) Negative Urine Ketones Negative Urine Blood Negative Urine Nitrite Negative Urine Bilirubin Negative Urine Urobilinogen 0.2 Ur Leukocyte Esterase Negative Urine Opiates Screen Negative Ur Oxycodone Screen Negative Urine Methadone Screen Negative Ur Barbiturates Screen Negative U Tricyclic Antidepress Negative Ur Phencyclidine Scrn Negative Ur Amphetamine Screen Negative U Methamphetamines Scrn Negative U Benzodiazepines Scrn Negative Urine Cocaine Screen Negative U Cannabinoids Screen Positive H Influ A Molecular Assay Influ B Molecular Assay RSV Antigen SARS CoV-2 RNA Rapid KELY 05/07/24 05:13 WBC 12.39 H D RBC 4.28 Hgb 12.3 Hct 37.5 MCV 87.6 MCH 28.7 MCHC 32.8 RDW Coeff of Yash 13.6 Plt Count 290 Immature Gran % (Auto) 0.5 Neut % (Auto) 91.9 H Lymph % (Auto) 6.5 L [place] % (Auto) 0.8 Eos % (Auto) 0.2 Baso % (Auto) 0.1 Neut # (Auto) 11.4 H Lymph # (Auto) 0.8 [place] # (Auto) 0.1 L Eos # (Auto) 0.0 Baso # (Auto) 0.0 Immature Gran # (Auto) 0.1 Puncture Site Base Excess O2 Saturation ABG pH ABG pCO2 ABG pO2 ABG HCO3 ABG Total CO2 Kieran Test Hemoglobin Oxyhemoglobin Carboxyhemoglobin Total Hemoglobin O2 Delivery Device Oxygen Liter Flow Sodium 136.5 Potassium 3.88 Chloride 103.5 Carbon Dioxide 25.8 Anion Gap 11.08 BUN 10.4 Creatinine 0.48 L Estimated GFR (MDRD) 147.00 BUN/Creatinine Ratio 21.66 Glucose 139.1 H Lactic Acid Calcium 8.41 Total Bilirubin 0.19 L AST 40.4 H ALT 19.9 Alkaline Phosphatase 67.9 NT-Pro-B Natriuret Pep Total Protein 6.89 Albumin 3.60 Globulin 3.29 Albumin/Globulin Ratio 1.09 Procalcitonin Serum , Qual Urine Color Urine Clarity Urine pH Ur Specific [place] Urine Protein Urine Glucose (UA) Urine Ketones Urine Blood Urine Nitrite Urine Bilirubin Urine Urobilinogen Ur Leukocyte Esterase Urine Opiates Screen Ur Oxycodone Screen Urine Methadone Screen Ur Barbiturates Screen U Tricyclic Antidepress Ur Phencyclidine Scrn Ur Amphetamine Screen U Methamphetamines Scrn U Benzodiazepines Scrn Urine Cocaine Screen U Cannabinoids Screen Influ A Molecular Assay Influ B Molecular Assay RSV Antigen SARS CoV-2 RNA Rapid KELY Imaging Imaging: EXAM: RIBS RIGHT SIDE WITH PA CHEST. THREE VIEWS TOTAL. FINDINGS/IMPRESSION: Diffuse infiltrates bilaterally more pronounced in the lower lobes. May reflect pulmonary edema or pneumonia. EXAM: CT HEAD WITHOUT CONTRAST FINDINGS: Ventricular size is normal. Bansal-white matter interfaces are preserved with no evidence of acute infarct. No evidence of intracranial hemorrhage. No midline shift or mass effect. No ectopia. Paranasal sinuses and mastoid air cells are clear. Orbital contents are normal. The calvarium is intact. IMPRESSION: 1. No acute findings. MRI may be of benefit if concern for concussion. Review Review Statement: I have independently reviewed and interpreted the labs/EKGs/imaging that were ordered by the ER provider. I have reviewed all outside records that are available currently in our EMR including imaging/notes/labs from previous visits. Plan Reccomendations/Plan: 1. Acute Hypoxic Respiratory Failure in setting of CAP vs Pulm Edema - oxygen w as weaned from 4L to RA and O2 sat remained above 94%, received steroids and nebs 2. CAP - steroids - did not d/c with due to hypertension and edema, nebs, rocephin given in ER - d/c with cefpodoxime bid x 6 days for 7 days total course, azith given this am - sent with Rx for 2 more days to complete 3 day course 3. Pulmonary Edema - diuresed 1600 mL in 8 hour period after 1 dose of lasix, breathing improved, swelling improved, will order echo outpatient 4. Hypertension - taking norvasc incorrectly, likely contributing to edema, stopping and switching to losartan/HCTZ 50mg /12.5 mg daily Additional Planning: Case discussed with ED Physician, Dr. Alcazar. DVT Prophylaxis: Ambulation Smoking Cessation: 3-10 minutes spent discussing smoking cessation. Disposition: Admit to: Med/Surg Observation Discussed Plan of Care with Dr. Dominick Bueno. If patient discharged with Left Ventricular Systolic Dysfunction: no, unable to complete echo prior to discharge - provider out of town Discharged with a beta eva? [] If no, why not? [] Discharged with an sara/arb? [] If no, why not? [] Diagnosis: Acute Hypoxic Respiratory Failure, Pneumonia, Fluid overload/Pulmonary Edema Diet: Cardiac Activity: as tolerated Medications: Maxi Make an appointment with your primary care provider for hospital follow-up this week. An echocardiogram will be ordered to be completed outpatient to rule out congestive heart failure. Review With Patient Reviewed with Patient and Family: Patient and family have been counseled on condition and care plan and have no immediate questions. I have personally discussed and reviewed the patient's visit/current labs/imaging/decision making with Dr. Sebastian Bueno, my supervising attending. Total number of minutes spent with patient 90 min. More than 50% of the time spent with this patient was devoted to counseling and coordination of care. Time of Admission: 05/06/24 20:58 Time of Discharge: 05/07/24 11:30 Discharge Plan Discharge Discharge Orders: Discharge Patient (ONCE); Ordered 05/07/24 Ordered By: FAWAD PATEL Activity Restrictions/Additional Instructions: Diagnosis: Pneumonia, Fluid overload/Pulmonary Edema Diet: Cardiac Activity: as tolerated Medications: Maxi Make an appointment with your primary care provider for hospital follow-up this week. An echocardiogram will be ordered to be completed outpatient to rule out congestive heart failure. Instructions: Pulmonary Edema (GEN), Bacterial Pneumonia (GEN) Patient Disposition: HOME SELF-CARE Prescriptions: New losartan-hydrochlorothiazide 50-12.5 mg Tablet 1 tab PO DAILY Qty: 30 0RF azithromycin 500 mg tablet 500 mg PO DAILY 2 Days Qty: 2 0RF Rx Instructions: start tomorrow 05/08/24 cefpodoxime 200 mg tablet 200 mg PO BID Qty: 12 0RF Rx Instructions: must administer with a meal/food Start this evening Continued ibuprofen 200 MG capsule 200 mg PO PRN PRN (Reason: PAIN) albuterol sulfate 90 mcg/actuation HFA aerosol inhaler See Rx Instructions .ROUTE .COMPLEX Qty: 6.7 2RF Dose Instruction: INHALE 2 PUFFS EVERY FOUR HOURS NEEDED FOR COUGH Rx Instructions: INHALE 2 PUFFS EVERY FOUR HOURS NEEDED FOR COUGH aripiprazole 10 mg tablet 10 mg PO DAILY Qty: 90 0RF buspirone 10 mg tablet See Rx Instructions .ROUTE .COMPLEX Qty: 270 0RF Dose Instruction: TAKE ONE TABLET THREE TIMES DAILY NEEDED FOR ANXIETY Rx Instructions: TAKE ONE TABLET THREE TIMES DAILY NEEDED FOR ANXIETY gabapentin 600 mg tablet See Rx Instructions .ROUTE .COMPLEX Qty: 270 1RF Dose Instruction: TAKE ONE TABLET THREE TIMES DAILY Rx Instructions: TAKE ONE TABLET THREE TIMES DAILY fluoxetine 40 mg capsule See Rx Instructions .ROUTE .COMPLEX Qty: 90 0RF Dose Instruction: TAKE ONE CAPSULE DAILY Rx Instructions: TAKE ONE CAPSULE DAILY fluticasone propionate 50 mcg/actuation spray,suspension 1 spray intranasal BID Qty: 15.8 3RF Rx Instructions: administer into each nostril buprenorphine-naloxone [Suboxone] 8-2 mg film 1 film buccal TID Discontinued amlodipine 10 mg tablet 10 mg PO QDAY Qty: 30 1RF Did you review [place] DRAINAGE DESIGN COORDINATOR for ALL controlled substances?: No Discussed opioids are addictive and Narcan is available by prescription or from pharmacy.: No Condition: Stable
[2024-05-07] MEDS ORDERED: CEFPODOXIME PROXETIL PO ONE (11:29)
[2024-05-07] MEDS: HYZAAR 50-12.5 MG TAB PO SCH (11:36)
[2024-05-07] MEDS ORDERED: ROCEPHIN 1 GM/50 ML D5W 1 GM/50 ML BAG IV SCH (21:00)
== END 2024-05-07 12:30 | disposition home or self-care (01) | DRG 193 ==
LOC: ED 16:30 → MEDSURG B 20:58
PROVIDERS: ADMIT Hospitalist; ATTEND Physician Assistant